=== PATIENT | female | born 1995 | race Caucasian/White ===

== ENCOUNTER 2022-10-16 12:00 | Outpatient (CLI) | payer OTHER, SELFPAY | END 2022-10-16 12:01 | disposition home or self-care (01) | PROVIDERS: PCP Family Medicine; Visit Provider Family Medicine | DX: Z00.00 Encounter for general adult medical examination without abnormal findings (principal); E66.01 Morbid (severe) obesity due to excess calories; Z13.6 Encounter for screening for cardiovascular disorders | CPT/HCPCS: 80048; 80061 ==

== ENCOUNTER 2023-09-02 17:36 | Outpatient (CLI) | payer OTHER, SELFPAY ==
--- NOTE | 2023-09-02 18:00 | CRLHL7_ITS ---
For Patients: As a result of the Century Cures Act, medical imaging exams and procedure reports are released immediately into your electronic medical record. You may view this report before your referring provider. If you have questions, please contact your health care provider. INDICATION: Excessive and frequent menstruation. R/O fibroids COMPARISON: none TECHNIQUE: 2D brown scale and color Doppler images were acquired of the pelvis using a transabdominal and transvaginal approach. FINDINGS: Sonographic images demonstrate a normal size and smooth outer contour of the uterus. Uterus measures 8.1 cm in length by 5.4 cm in AP diameter by 6.8 cm in transverse dimension. The myometrium has a normal uniform echotexture. The endometrial lining appears thickened and measures 18 mm in composite thickness. The right ovary measures 2.3 x 2.1 x 1.6 cm in size and the left ovary measures 2.2 x 2.2 x 1.8 cm. The ovaries demonstrate normal arterial and venous blood flow on color Doppler analysis. There are no suspicious fluid collections within the cul-de-sac. IMPRESSION: Endometrial thickness 18 millimeters. No endometrial fluid. No fibroids. Dictated by Jono You MD @ 09/04/2023 7:35:14 AM (Electronically Signed)
== END 2023-09-02 17:37 | disposition home or self-care (01) ==
LOC: US 17:37
PROVIDERS: PCP Family Medicine; Visit Provider Obstetrics & Gynecology
DX: N92.1 Excessive and frequent menstruation with irregular cycle (principal); R93.89 Abnormal findings on diagnostic imaging of other specified body structures
CPT/HCPCS: 76830; 76856

== ENCOUNTER 2024-10-18 16:20 | Outpatient (CLI) | payer OTHER, SELFPAY | END 2024-10-18 16:21 | disposition home or self-care (01) | PROVIDERS: PCP Family Medicine; Visit Provider Family Medicine | DX: Z01.818 Encounter for other preprocedural examination (principal); N92.1 Excessive and frequent menstruation with irregular cycle | CPT/HCPCS: 80048; 85025 ==

== ENCOUNTER 2024-11-05 07:04 | Day surgery (SDC) | payer OTHER, SELFPAY ==
[2024-11-05 07:26] VITALS: BMI 42.0
[2024-11-05 07:44] LABS: Ur HCG Qualitative* Negative (Negative)
[2024-11-05 07:56] VITALS: BP 119/74; PULSE 79; RESP 16; TEMP 36.8; O2SAT 98
[2024-11-05] MEDS: LACTATED RINGERS 500 ML 500 ML 100 ML IV (08:00)
[2024-11-05] MEDS: SODIUM CHLORIDE 0.9 % (FLUSH) 10 ML SYRINGE IVF (08:00)
[2024-11-05] MEDS: LIDOCAINE 1% MDV 20 ML INJECTION (09:07)
[2024-11-05] MEDS: BUPIVACAINE 0.25% 30 ML INJECTION (09:07)
--- NOTE | 2024-11-05 09:22 | SUR.OPER ---
CALCULATED DEFICIT = 115ML
--- NOTE | 2024-11-05 09:27 | P.GYNPRC_ITS ---
Procedure Note Date of procedure: 11/05/24 Will [facility] bill your pro fee for this procedure?: Yes Pre-op diagnosis: Menometrorrhagia Post-op diagnosis: Menometrorrhagia Procedure: 1. Hysteroscopy 2. D&C 3. Mandi endometrial ablation Anesthesia: local (Paracervical block) Complications: None Surgeon: Bernice Angel MD Estimated blood loss (mL): 5 Pathology: specimen obtained, sent to pathology (Endometrial curettings) Condition: stable Disposition: same day Findings: Normal-appearing endometrial cavity, thick endometrial lining. Normal tubal ostia bilaterally. Procedure Description: After obtaining informed consent, the patient was taken to the operating room where she received monitored anesthesia care. She was prepared and draped in the normal sterile fashion, in the dorsal lithotomy position. An open-sided bivalve speculum was introduced into the vagina and the cervix visualized. The anterior lip of the cervix was grasped with a single-tooth tenaculum for traction. A paracervical block was then administered using a total of 20 mL of a 50/50 mixture of 0.25% Marcaine and 1% lidocaine plain. The uterus was gently sounded. Sound length was 10 cm. The cervix length was determined to be 4 cm using Hegar dilators, yielding a uterine cavity length of 6 cm. The cervix was gently dilated to a #6 Hegar dilator. A hysteroscope was then advanced under direct visualization through the cervix into the uterine cavity. Sterile normal saline was used as distending medium. The uterine cavity was carefully inspected with the findings noted above. The hysteroscope was then removed. The endometrial lining was then sharply curetted. The Mandi device was then set to a cavity length of 6 cm, inserted through the cervical os into the uterine cavity to the level of the fundus, and deployed. The device was sealed against the cervix. There was a slight air leak, so an additional 3 mL of air was added to the device balloon, and a second tenaculum was placed on the posterior lip of the cervix. The safety checks were then passed x2 and the 2-minute treatment cycle initiated. Following completion of the treatment cycle, the Mandi device was removed. The hysteroscope was advanced again into the uterine cavity and the uterine cavity inspected. A good ablation was noted from the internal os to fundus and to the cornua bilaterally. Pictures were taken for documentation purposes. The hysteroscope was removed. The tenaculum was removed. There was little bleeding from the tenaculum site, which was controlled with direct pressure sponge stick. All instruments were then removed. The patient tolerated the procedure well. Sponge, lap, needle, and instrument counts reported as correct x2. The patient was taken to the recovery room awake in a stable condition. Fluid deficit: 115 mL.
[2024-11-05 09:29] VITALS: BP 106/74; PULSE 79; RESP 16; TEMP 36.4; O2SAT 99
--- NOTE | 2024-11-05 09:32 | P.ANES_ITS ---
Anesthesia Charges Start Date/Time Anesthesia Start Date: 11/05/24 Anesthesia Start Time: 08:42 Stop Date/Time Anesthesia Stop Date: 11/05/24 Anesthesia Stop Time: 09:33 Coding CPT Codes CPT Codes: ANESTH HYSTEROSCOPE/GRAPH - 20684 ([id number]) P3 - PATIENT W/SEVERE SYS DISEASE, QK - HUMAN RESOURCES PROFESSIONAL 2-4 CNCRNT ANES PROC, QX - COVER INSPECTOR SVC W/ MD MED DIRECTION
--- NOTE | 2024-11-05 09:32 | W.ANESCHARGE ---
Anesthesia Charges Start Date/Time Anesthesia Start Date: 11/05/24 Anesthesia Start Time: 08:42 Stop Date/Time Anesthesia Stop Date: 11/05/24 Anesthesia Stop Time: 09:33 Coding CPT Codes CPT Codes: ANESTH HYSTEROSCOPE/GRAPH - 40734 ([id number]) P3 - PATIENT W/SEVERE SYS DISEASE, QK - BULL FLOAT FINISHER 2-4 CNCRNT ANES PROC, QX - DRONE OPERATOR SVC W/ MD MED DIRECTION
[2024-11-05 09:45] VITALS: BP 126/85; PULSE 67; RESP 16; O2SAT 99
--- NOTE | 2024-11-05 09:57 | P.ANES_ITS ---
Anesthesia Charges Start Date/Time Anesthesia Start Date: 11/05/24 Anesthesia Start Time: 08:42 Stop Date/Time Anesthesia Stop Date: 11/05/24 Anesthesia Stop Time: 09:33 Coding CPT Codes CPT Codes: ANESTH HYSTEROSCOPE/GRAPH - 80000 ([id number]) QX - MORTGAGE SERVICING SPECIALIST SVC W/ MD MED DIRECTION, QK - DESIGN ANALYST 2-4 CNCRNT ANES PROC, P3 - PATIENT W/SEVERE SYS DISEASE
--- NOTE | 2024-11-05 09:57 | W.ANESCHARGE ---
Anesthesia Charges Start Date/Time Anesthesia Start Date: 11/05/24 Anesthesia Start Time: 08:42 Stop Date/Time Anesthesia Stop Date: 11/05/24 Anesthesia Stop Time: 09:33 Coding CPT Codes CPT Codes: ANESTH HYSTEROSCOPE/GRAPH - 43705 ([id number]) QX - QUALITY SYSTEMS SPECIALIST SVC W/ MD MED DIRECTION, QK - MANAGER HOSPITALITY 2-4 CNCRNT ANES PROC, P3 - PATIENT W/SEVERE SYS DISEASE
[2024-11-05 10:04] VITALS: BP 138/99; PULSE 67; RESP 16; O2SAT 99
[2024-11-05 10:18] VITALS: BP 126/82; PULSE 68; RESP 16; O2SAT 99
[2024-11-05 10:30] VITALS: BP 122/84; PULSE 69; RESP 16; O2SAT 98
== END 2024-11-05 10:51 | disposition home or self-care (01) ==
LOC: OR 07:06
PROVIDERS: PCP Family Medicine; Visit Provider Obstetrics & Gynecology
PROC: 0UF98ZZ Fragmentation in Uterus, Via Natural or Artificial Opening Endoscopic (ICD-10-PCS; CPT 58563; principal; 2024-11-05 08:30)
DX: N92.1 Excessive and frequent menstruation with irregular cycle (principal); E66.01 Morbid (severe) obesity due to excess calories; Z68.41 Body mass index [BMI] 40.0-44.9, adult
CPT/HCPCS: 58563; 00952; 81025; 88305; J2003; J0665; J1100; J1885; J2405; J2704; J3010; J3490; J7120